=== PATIENT | female | born 1945 ===

== ENCOUNTER → 2018-11-21 19:50 | Outpatient (REF) | payer OTHER, SELFPAY ==
[2018-11-21 20:46] LABS: Free T3, Triiodothyronine Free 3.53 pg/mL (2.77-5.27); Free T4, Direct Thyroxine 1.12 ng/dL (0.78-2.19); Triiodothryronine T3 Uptake 36.7 % (23.5-40.5)
[2018-11-21 20:59] LABS: Thyroid Stimulating Hormone 1.71 uIU/mL (0.47-4.68)
[2018-11-24 14:45] LABS: Anti Thyroglobulin Antibody < 1 IU/mL (< 2); Thyroid Peroxidase Antibodies 1 IU/mL (< 9)
[2018-11-25 10:34] LABS: Triiodothyronine T3 Total 90 ng/dL (76-181)
== END ==
LOC: LAB 19:50
PROVIDERS: Visit Provider Naturopath
DX: E03.9 Hypothyroidism, unspecified (principal)
CPT/HCPCS: 84439; 84443; 84479; 84480; 84481; 86376; 86800